=== PATIENT | male | born 1955 | race Caucasian/White ===

== ENCOUNTER 2022-10-17 16:03 | Outpatient (CLI) | payer MEDICARE, BC, SELFPAY ==
[2022-10-17 15:03] LABS: Abs Immature Grans 0.01 10^3/uL (0.0-0.06); Absolute Basophil Count 0.02 10^3/uL (0.0-0.2); Absolute Eosinophil Count 0.06 10^3/uL (0.0-0.7); Absolute Lymphocyte Count 1.68 10^3/uL (1.2-3.4); Absolute Monocyte Count 0.43 10^3/uL (0.1-0.8); Absolute Neutrophil Count 3.78 10^3/uL (1.2-6.7); Basophils % 0.3; HCT 43.8 % (40.0-50.0); HGB 14.5 g/dL (13.5-17.5); Immature Grans % 0.2; Lymphocytes % 28.1; MCH 30.7 pg (27.0-33.0); MCHC 33.1 % (32.0-36.0); MCV 93 fL (80-95); MPV 10.7 fL (8.0-11.0); Monocytes % 7.2; Neutrophils % 63.2; Platelet Count 218 10^3/uL (130-400); RBC 4.72 10^6/uL (4.36-5.78); RDW 13.1 % (11.8-14.1); RDW-SD 44.8 fL; WBC 5.98 10^3/uL (4.4-10.8)
[2022-10-17 15:31] LABS: ALT 19 U/L (16-63); AST 14 U/L (15-37); Albumin 4.1 g/dL (3.4-5.0); Alkaline Phosphatase 49 U/L (46-116); Anion Gap 0.9 mmol/L (3-11); BUN 13 mg/dL (7-18); Bilirubin, Total 0.8 mg/dL (0.2-1.0); CO2 32.1 mmol/L (21.0-32.0); CREATININE 0.9 mg/dL (0.70-1.30); Calcium 9.1 mg/dL (8.5-10.1); Chloride 100 mmol/L (98-107); Estimated GFR 94.78 (mL/min/1.73m2); Glucose 102 mg/dL (74-106); Potassium 3.7 mmol/L (3.5-5.1); Sodium 133 mmol/L (136-145); Total Protein 7.3 g/dL (6.4-8.2)
[2022-10-19 14:04] LABS: PSA, Ultrasensitive 9.8 ng/mL (<= 4.5)
[2022-10-20 16:57] LABS: Testosterone, Total 375 ng/dL (240-950)
== END 2022-10-17 16:04 | disposition home or self-care (01) ==
PROVIDERS: PCP Family Medicine; Visit Provider Radiology Radiation Oncology
DX: C61 Malignant neoplasm of prostate (principal)
CPT/HCPCS: 36415; 80053; 84153; 84403; 85025